=== PATIENT | female | born 1975 | race Caucasian/White ===

== ENCOUNTER 2022-09-20 10:10 | Outpatient (RCR) | payer MEDICARE, MEDICAID, SELFPAY ==
--- NOTE | 2022-09-20 11:34 | PCPTNOTE ---
Patient seen secondary to a concern about other physical therapy clinic. Patient currently being seen at other clinic. Physical therapist did subjective history of patient, looked at home exercise program, and called patient's doctor's office to have a clarification on guidelines. Patient appears to be getting proper physical therapy based on those facts. Patient lives 15 minutes from current clinic she is going to and 50 minutes from this clinic. This clinic does not have dry needling which was suggested in the order and did have a therapist that had extra experience with thoracic outlet syndrome, but she no longer works here so I would recommend going back to her current clinic. No charge for session as I do not believe she can be seen by two clinics at the same time.
== END 2022-09-20 13:28 | disposition home or self-care (01) ==
LOC: ANHPT 10:10
DX: G54.0 Brachial plexus disorders (principal)
CPT/HCPCS: 99199

== ENCOUNTER 2023-05-02 10:11 | Outpatient (CLI) | payer MEDICARE, MEDICAID, SELFPAY ==
--- NOTE | 2023-05-02 10:00 | ECG_ITS ---
Measurements Intervals [place] Rate: 67 P: 64 MO: 122 QRS: 74 QRSD: 93 T: 67 QT: 378 QTc: 399 Interpretive Statements SINUS RHYTHM POSSIBLE LEFT ATRIAL ENLARGEMENT [-0.1mV P WAVE IN V1/V2] POSSIBLE LEFT VENTRICULAR HYPERTROPHY [VOLTAGE CRITERIA PLUS LAE OR QRS WIDENING] ABNORMAL ECG NO PREVIOUS ECG AVAILABLE FOR COMPARISON Electronically Signed On 05-02-2023 12:07:44 CDT by Hans Mason M.D.
[2023-05-02 12:20] LABS: Hematocrit 42.3 % (37.0-47.0); Hemoglobin 13.8 g/dL (12.0-15.0); Mean Corpuscular HGB Conc 32.6 g/dl (32-36); Mean Corpuscular Hemoglobin 30.2 pg (26-34); Mean Corpuscular Volume 92.6 fl (80-100); Mean Platelet Volume 9.2 fl (7.4-10.4); Platelet Count Result 220 k/mm3 (150-375); Red Blood Count 4.57 M/mm3 (4.2-5.4); Red Cell Distribution Width 19.2 % (11.5-14.5); White Blood Count 7.8 K/mm3 (4.5-10.0)
[2023-05-02 12:29] LABS: INR 0.9; Prothrombin Time 12.6 Seconds (11.1-14.7)
[2023-05-02 12:31] LABS: Partial Thromboplastin Time 28.4 SECONDS (22.3-36.8)
[2023-05-02 12:47] LABS: Appearance Urine Clear (Clear); Bilirubin Urine Negative (Negative); Blood Urine Negative (Negative); Color Urine Yellow (Yellow); Glucose Urine UA Negative (Negative); Ketones Urine Negative (Negative); Leukocyte Esterase Ur Negative LEU/UL (Negative); Nitrate Urine Negative (Negative); Protein Urine Negative (Negative); Specific Grav Ur 1.012 (1.001-1.035); Urobilinogen Urine 0.2 mg/dL (<2.0)
[2023-05-02 13:01] LABS: Add Urine Microscopic? NO
[2023-05-02 13:59] LABS: Anion Gap 2 mmol/L (8-16); Blood Urea Nitrogen 14 mg/dL (7-17); Calcium 9.1 mg/dL (8.4-10.2); Carbon Dioxide 36 mmol/L (22-30); Chloride 98 mmol/L (98-107); Estimated Glomerular Filt Rate > 60; Glucose 88 mg/dL (65-110); Sodium 136 mmol/L (137-145)
== END 2023-05-02 10:12 | disposition home or self-care (01) ==
PROVIDERS: PCP Physician Assistant Medical; Visit Provider Neurological Surgery
DX: M54.2 Cervicalgia (principal); G89.29 Other chronic pain; Z01.818 Encounter for other preprocedural examination; R94.31 Abnormal electrocardiogram [ECG] [EKG]
CPT/HCPCS: 36415; 80048; 81003; 85027; 85610; 85730; 86850; 86900; 86901; 93005

== ENCOUNTER 2023-05-04 12:30 | Inpatient (IN) | payer MEDICARE, MEDICAID, SELFPAY ==
[2023-05-01 08:35] VITALS: BMI 20.7
--- NOTE | 2023-05-01 08:54 | PC.NURSE ---
Report to the Outpatient Waiting Room, entrance under the green pavilion located off [facility], at time 6:00 on date 05/04/23. Planned Procedure Time: 8:00. Time changes happen often and if your time is changed the preop area will call you the afternoon before. - You and your visitor will be asked to self-screen and do not enter if you have any COVID symptoms. - A mask is optional within the hospital at this time. Patients may have clear liquids (water, carbonated beverages, clear teas, apple juice) until 3 hours prior to surgery (5:00) with a maximum of 20 ounces. - No food from midnight until time of surgery Take the following medications with a SIP of water the morning of surgery: SUBOXONE, DIAZEPAM, GABAPENTIN, STEROID, SERTRALINE DO NOT STOP ANY OF YOUR OTHER PRESCRIPTION MEDICATIONS PRIOR TO SURGERY EXCEPT THE FOLLOWING Medications to discontinue per physician: MELOXICAM AND VITAMIN Date to take last dose: HAS ALREADY STOPPED Please no make-up, nail south korean, hairspray, perfume, deodorant, or body powder the day of surgery. No jewelry (including any body piercings) or valuables the day of surgery, leave them at home. Please take a shower or bath the night before, or the morning of, surgery with an antibacterial soap. Wear comfortable, loose fitting clothing. - Jewelry must be removed prior to entering the operating room. Rings and piercings that are not removed may be cut off. - The hospital will not accept responsibility for valuables. - Please leave all valuables, including medications, at home the day of surgery. If you are going home after surgery, a licensed dumpster driver must drive you home. - NO public transportation without another adult if you receive anesthesia. - We recommend that an adult stay with you for 24 hours following discharge. - We also recommend that you do not drive, make important decision, drink alcoholic beverages, or take any drugs that were not prescribed by your health care provider for at least 24 hours after your discharge time. Follow any additional instructions given to you from your surgeon. If you or anyone in your household have experienced Covid symptoms in the past week, please notify your surgeon or the nurse liaison at the phone number below for possible testing. Telephone instructions given to PT - H[employer]DE [employer] and asked if any additional questions and then verbalized understanding. Patient advised to call surgeon office or pre surgery nurse liaison [phone] if any additional questions.
[2023-05-04] VITALS (14 sets, daily range): BP systolic 102–141; BP diastolic 51–78; PULSE 70–99; RESP 14–18; TEMP 36.1–37.2; O2SAT 91–100
--- NOTE | ~2023-05-04 | XR_ITS ---
XR fluoroscopy no charge DATE: 05/04/2023 10:27 INDICATION: C3-T1 laminectomy, lateral mass fusion TECHNIQUE: 3 spot C-arm lateral views of the cervical spine 10.5 seconds total exposure time 0.0086 mGym2 total dose area product COMPARISON: None FINDINGS: Status post anterior and interbody spinal surgical fusion by means of anterior plate and sc rews and interbody device at C3-C5. Status post anterior surgical spinal fusion by means of plate and screws at C7-T1. Status post posterior surgical fusion at C3-T2 IMPRESSION: Status post anterior surgical fusion at C3-C5 and C7-T1 Status post posterior surgical fusion at C3-T2 Reviewed, dictated and finalized at [facility]. Reviewed, dictated and finalized at location []
[2023-05-04] MEDS: LACTATED RINGERS 1,000 ML 30 ML IV CONT ×2 (07:10→10:55)
--- NOTE | 2023-05-04 07:39 | WPDANESEPPF ---
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 Patient Data Age: 47 Gender: F Height: 1.68 m Weight: 56.5 kg Last Vital Signs Temp 37.2 C 05/04/23 07:13 Pulse 99 05/04/23 07:13 Resp 16 05/04/23 07:13 BP 141/78 H 05/04/23 07:13 Pulse Ox 95 05/04/23 07:13 O2 Del Method Room Air 05/04/23 07:13 Allergies Allergy/AdvReac Type Severity Reaction Status Date / Time baclofen Allergy Severe emesis, Verified 05/04/23 06:45 coma X 4 days diphenhydramine Allergy Other Verified 05/04/23 06:45 [From Benadryl] oxycodone AdvReac Severe Nausea and Verified 05/04/23 06:45 Vomiting duloxetine [From Cymbalta] AdvReac Palpitation Verified 05/04/23 06:45 s methocarbamol [From Robaxin] AdvReac Gastrointestinal Verified 05/04/23 06:45 Upset milnacipran [From Savella] AdvReac Vomiting Verified 05/04/23 06:45 pregabalin [From Lyrica] AdvReac Other Verified 05/04/23 06:45 propranolol AdvReac Other Verified 05/04/23 06:45 tizanidine AdvReac Drowsy Verified 05/04/23 06:45 Home Medications Medication Instructions Recorded Confirmed Type buprenorphine 12 mg-naloxone 3 mg 1 film buccal Q24H Takes in the am 10/11/22 05/04/23 History sublingual film (Suboxone) buprenorphine 2 mg-naloxone 0.5 mg 1 film buccal DAILY at night 10/11/22 05/04/23 History sublingual film (Suboxone) buprenorphine 4 mg-naloxone 1 mg 1 film buccal Q24H At noon 10/11/22 05/04/23 History sublingual film (Suboxone) sertraline 100 mg tablet 100 mg PO DAILY #90 tabs 12/05/22 05/04/23 Rx oxybutynin chloride 5 mg 5 mg PO DAILY #90 tabs 12/26/22 05/04/23 Rx tablet,extended release 24 hr sennosides 8.6 mg-docusate sodium 1 tab-cap PO QHS #30 tabs 01/08/23 05/04/23 Rx 50 mg tablet (Senexon-S) meloxicam 15 mg tablet 15 mg PO DAILY 01/25/23 05/04/23 History montelukast 10 mg tablet 10 mg PO DAILY #90 tabs 01/25/23 05/04/23 Rx fluticasone propionate 50 2 spray intranasal BID #48 grams 04/02/23 05/04/23 Rx mcg/actuation nasal spray,suspension diazepam 5 mg tablet See Rx Instructions PO TID muscle 04/06/23 05/04/23 Rx spasm & anxiety 28 days #84 tabs gabapentin 800 mg tablet 800 mg PO TID #270 tabs 04/11/23 05/04/23 Rx gabapentin 100 mg capsule 200 mg PO TID #180 caps 04/16/23 05/04/23 Rx trazodone 50 mg tablet See Rx Instructions PO QHS PRN 04/16/23 05/04/23 Rx insomnia #90 tabs methylprednisolone 4 mg tablets in See Rx Instructions PO PER PKG DIR 04/30/23 05/04/23 Rx a dose pack (Medrol (Pepito)) #21 ea calcium carbonate 500 mg calcium 500 mg PO DAILY 05/01/23 05/04/23 History (1,250 mg) chewable tablet (Calcium 500) cholecalciferol (vitamin D3) 125 125 mcg PO DAILY 05/01/23 05/04/23 History mcg (5,000 unit) tablet (Vitamin D3) diazepam 10 mg tablet 10 mg PO Q6H PRN Anxiety 05/01/23 05/04/23 History zhevgeektk-LR-XF-acetaminophen 2 cap PO Q4-6H PRN Allergy Symptoms 05/01/23 05/04/23 History 6.25 mg-5 mg-10 mg-325 mg capsule (Kati-[place] Plus Nsxxs-Mglstmx-Caf) Patient hx anesthesia problems: none Family hx anesthesia problems: none Results Review: All pre-operative results and documents have been reviewed as part of the pre-operative evaluation. [facility] Past Medical History Medical History Anxiety Chronic neck pain DVT of upper extremity (deep vein thrombosis) Gallbladder attack IBS (irritable bowel syndrome) Pneumothorax large right with tension s/p chest tube Thoracic outlet syndrome Surgical History Surgical History Hx of spinal surgery multiple on the neck Social History Social History (Reviewed 06
--- NOTE | 2023-05-04 07:50 | WPDHPUPDATE1 ---
History and Physical Update Update Date/Time: 05/04/23 07:50 History and Physical has been reviewed, including an updated exam of the patient. There are NO changes in the patient's condition. Risks, benefits, and alternatives have been discussed and questions answered. Patient agrees to proceed with procedure.
[2023-05-04] MEDS: ceFAZolin 2 GM/D5W 50 ML 2 GM/50 ML BAG IVPB (07:59)
[2023-05-04] MEDS: LIDO 1%/EPINEPHRINE 1:100,000 50 ML VIAL 10 ML INFILTRATE (09:04)
--- NOTE | 2023-05-04 10:32 | W.PM.PROC2 ---
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 Her head was placed in a Dunlap heat treater head. She was then turned into the prone position on gel rolls her head was attached to the bed frame using Dunlap augustin in a slightly flexed and shoulder position. There of operation on the back of her neck was examined, marked for incision, prepped and draped in routine sterile fashion. This area was injected with 0.5% lidocaine with [id number] epinephrine. Intravenous antibiotics given prior to incision. Incision was made with a 10 blade scalpel down to the cervical fascia. A subperiosteal dissection of the muscle soft tissue away from spinous process and lamina at C3-T1 was performed with a subperiosteal elevator and Bovie cautery. A verifying x-rays obtained to verify the level of operation. The C3-C7 laminectomy was performed by cutting a trench in the lamina just lateral to the spinous process bilateral using a Midas Brandon drill. The interspinous ligament above and below was cut with a Leksell rongeur. The C3 through 7 laminae a could then be removed in 1 piece. These were stripped free of soft tissue and morselized for later use is posterolateral autograft. Pedicle screws were performed at L1 by observing and palpating the pedicle awl hole was made and superior articular process above the pedicle using a Midas Brandon drill. The pedicle was then cannulated with a pedicle probe, checked for continuity with the ball probe, tapped with a 3.5 mm tap and a 24 mm x 4 mm screws placed into each pedicle on each side. Lateral mass screws were placed at C3-6 by creating a hole at the mid point facet using a Midas Brandon drill. The drill set to 12 mm then used to create a hole 20? cephalad 20? lateral each of these and a lateral masses. These were tapped with a 3.5 mm screw. A 4 x 12 mm screw was then placed in the each lateral mass on each side. Rongeur placed in the screw heads on either side and secured in position using the caps for that purpose. These were definitively tightened with a torque and anti torque device. A verifying x-rays obtained to verify good position of the instrumentation which was confirmed. The lateral masses were decorticated using a Midas Brandon drill. Mixture of local autograft and I factor was then packed against these decorticated surfaces and into the decorticated facet joints. Copious irrigation had previously been performed with bacitracin irrigation. A medium Hemovac drain was left in the subfascial position buried up to the inferior right of the incision. The wound was then closed in layered fashion with 2-0 Vicryl interrupted sutures in the lumbodorsal fascia and Aileen's layer. 3-0 Vicryl buried interrupted sutures were placed in the dermis and the skin was closed with a running 4-0 Monocryl subcuticular stitch and dressed with Dermabond and a Telfa and Tegaderm dressing. The patient was allowed to wake up in the operating room was taken to the recovery room in stable condition. There were no immediate complications of this operation. All counts were reported correct in case. Blood loss was 200 cc. The patient was neurologically at her baseline postoperatively. Estimated Blood Loss 200 IV Fluids 1,500 Drains Yes Complications None Condition Stable Disposition PACU [facility] Billing Surgery - Charge Forward: Surgery Billing
--- NOTE | 2023-05-04 12:47 | ADMGEN ---
This patient, Yin Chacon, was admitted to Medical Room 340-01 2 1240. Patient/family oriented to hospital policies and general routines including ID bracelet, bed and alarms, visiting hours, pain management, procedures, bathroom and other care routines, personal items, smoking policy, room service/diet, and visiting hours. Information on how to activate the Rapid Response Team has been discussed. Patient/Family are encouraged to report perceived risks to care and to ask questions if they do not understand what they are told or what they should do.
[2023-05-04] MEDS: GABAPENTIN 400 MG CAPSULE 800 MG PO (14:36)
[2023-05-04] MEDS: oxyBUTYnin CHLORIDE XL 5 MG TAB.ER.24 PO (14:37)
[2023-05-04] MEDS: GABAPENTIN 100 MG CAPSULE 200 MG PO (14:37)
[2023-05-04] MEDS: HYDROmorphone HCL INJ (*CRX) 1 MG/ML SYR 0.5 MG IV PUSH ×2 (15:58→20:45)
--- NOTE | 2023-05-04 16:37 | PCPTNOTE ---
On 05/04/23, the student, [Lillian Toro], provided care and completed [facility] documentation on this patient. I have reviewed the student's documentation and agree with the findings.
[2023-05-04] MEDS: FLUTICASONE PROPIONATE 0.05% NA SPR 16 GM BTL (*BKC) 2 SPRAY NASAL (17:01)
[2023-05-04] MEDS: ceFAZolin 1 GM/NS 50 ML 1 GM/50 ML BAG IVPB (17:46)
[2023-05-04] MEDS: SENNA/DOCUSATE SODIUM TABLET 1 TAB PO (20:46)
[2023-05-05] MEDS: ceFAZolin 1 GM/NS 50 ML 1 GM/50 ML BAG IVPB ×2 (00:46→07:39)
[2023-05-05] MEDS: HYDROcodone/acetaminophen (*CRX) 10-325 MG TABLET 1 TAB PO ×4 (01:46→21:29)
[2023-05-05 01:52] VITALS: BP 127/71; PULSE 88; RESP 18; TEMP 37.1; O2SAT 95
[2023-05-05 04:12] VITALS: BP 152/82; PULSE 92; RESP 16; TEMP 37.2; O2SAT 95
[2023-05-05 07:30] VITALS: BP 142/83; PULSE 84; RESP 16; TEMP 37.1; O2SAT 95
[2023-05-05] MEDS: HYDROmorphone HCL INJ (*CRX) 1 MG/ML SYR 0.5 MG IV PUSH ×3 (07:56→18:53)
[2023-05-05] MEDS: FLUTICASONE PROPIONATE 0.05% NA SPR 16 GM BTL (*BKC) 2 SPRAY NASAL ×2 (08:35→16:59)
[2023-05-05] MEDS: GABAPENTIN 400 MG CAPSULE 800 MG PO ×3 (08:35→16:59)
[2023-05-05] MEDS: CHOLECALCIFEROL 1,000 UNITS TABLET 5000 UNITS PO (08:36)
[2023-05-05] MEDS: GABAPENTIN 100 MG CAPSULE 200 MG PO ×3 (08:36→17:00)
[2023-05-05] MEDS: MONTELUKAST SODIUM 10 MG TABLET PO (08:36)
[2023-05-05] MEDS: SERTRALINE HCL 50 MG TABLET 100 MG PO (08:36)
[2023-05-05] MEDS: oxyBUTYnin CHLORIDE XL 5 MG TAB.ER.24 PO (08:36)
--- NOTE | 2023-05-05 10:26 | PC.NURSE ---
Spoke with Dr Hough this am to clarify use of collar. Hard collar is to be worn at all time with the exception of bathing or eating.
--- NOTE | 2023-05-05 11:00 | WPDNEUROSGPN ---
Progress Note: A&P Assessment and Plan (1) Cervical stenosis of spinal canal: Code(s): M48.02 - Spinal stenosis, cervical region Status: Acute Plan 47 year old female POD1 from posterior cerivcal decompression and fusion Pain control improving Plan to d/c hemovac drain this am Try to minimize IV narcotic use. Anticipate stable for d.c to home either later today vs early 05/06 pending pain control Appreciate hospitalist assistance with pain managment At dischage patinet will take mm relaxants and home suboxone for pain control per Dr. Hough Time Spent With Patient Time with patient: 15 - 25 minutes Subjective Date/time seen: 05/05/23 11:00 Interval history: Patient with neck pain but conroled with po and iv medications along with mm relaxants Not getting home suboxone Mobilizing well Drain output 60 cc overnight Exam Narrative: AWake, alert, oriented x3 Speech CF SAAD EOMI Face= TML MAEW with good strength Able to elevate arms above head without icident Dressing CDI In cervical collar Objective Data Vital Signs Vital Signs: Vital Signs - 24 hr 05/04/23 11:10 05/04/23 11:25 05/04/23 11:40 Temperature Pulse Rate 88 82 72 Respiratory Rate 14 14 14 Blood Pressure 113/64 120/67 128/68 Pulse Oximetry 100 96 93 Oxygen Delivery Simple Face Mask Room Air Room Air Oxygen Flow Rate 6 05/04/23 11:55 05/04/23 12:10 05/04/23 12:25 Temperature Pulse Rate 70 75 72 Respiratory Rate 14 14 16 Blood Pressure 120/66 121/64 125/62 Pulse Oximetry 93 94 93 Oxygen Delivery Room Air Room Air Room Air Oxygen Flow Rate 05/04/23 12:40 05/04/23 12:55 05/04/23 13:25 Temperature 96.9 F L 97.1 F L 97.2 F L Pulse Rate 75 73 80 Respiratory Rate 16 18 18 Blood Pressure 116/60 110/58 L 112/59 L Pulse Oximetry 91 93 95 Oxygen Delivery Oxygen Flow Rate 05/04/23 14:25 05/04/23 15:38 05/04/23 15:46 Temperature 97.5 F L 97.8 F Pulse Rate 84 89 Respiratory Rate 18 18 Blood Pressure 102/53 L 108/57 L Pulse Oximetry 93 93 Oxygen Delivery Room Air Oxygen Flow Rate 05/04/23 20:25 05/04/23 21:00 05/05/23 01:52 Temperature 98.2 F 98.7 F Pulse Rate 80 88 Respiratory Rate 18 18 Blood Pressure 116/62 127/71 Pulse Oximetry 94 95 Oxygen Delivery Room Air Oxygen Flow Rate 05/05/23 04:12 05/05/23 07:30 Temperature 99 F 98.8 F Pulse Rate 92 84 Respiratory Rate 16 16 Blood Pressure 152/82 H 142/83 H Pulse Oximetry 95 95 Oxygen Delivery Oxygen Flow Rate Intake/Output Intake/Output: Intake & Output 05/02/23 05/03/23 05/04/23 05/05/23 23:59 23:59 23:59 23:59 Intake Total 2620 622 Output Total 225 1410 Balance 9438 -824 Meds/Results Medications: Active Medications Generic Name Dose Route Start Last Admin Trade Name Freq PRN Reason Stop Dose Admin Hydrocodone Bitart/Acetaminophen 1 tab 05/04/23 12:30 Hydrocodone/Acetaminophen (*Crx) 5-325 Mg Tablet PO Q4H PRN Mild Pain (1-3) Hydrocodone Bitart/Acetaminophen 1 tab 05/04/23 12:30 05/05/23 01:46 Hydrocodone/Acetaminophen (*Crx) 10-325 Mg Tablet PO 1 tab Q4H PRN Administration Moderate Pain (4-6) Al Hydrox/Mg Hydrox/Simethicone 20 ml 05/04/23 12:30 Mag Hydrox/Al Hydrox/Simeth 30 Ml Udc PO Q4H PRN Indigestion/Heartburn Bisacodyl 10 mg 05/04/23 12:30 Bisacodyl 10 Mg Suppository RECTAL DAILY PRN Constipation Calcium Carbonate 500 mg 05/05/23 09:00 Calcium Carbonate (Tums) 500 Mg (200 Mg Elemental) PO DAILY ИВАН Diazepam 5 mg 05/04/23 17:00 Diazepam (*Crx) 5 Mg Tablet PO TID PRN MUSCLE SPASM AND Anxiety Fluticasone Propionate 2 spray 05/04/23 17:00 05/05/23 08:35 Fluticasone Propionate 0.05% Na Spr 16 Gm Btl (*Bkc) NASAL 2 spray BID ИВАН Administration Gabapentin 200 mg 05/04/23 13:00 05/05/23 08:36 Gabapentin 100 Mg Capsule PO 200 mg TID ИВАН Administration Gabapentin 800 m
[2023-05-05 11:30] VITALS: BP 123/76; PULSE 104; RESP 16; TEMP 36.7; O2SAT 97
--- NOTE | 2023-05-05 12:53 | PM.IMPN ---
Progress Note: A&P Assessment and Plan (1) Hx of spinal surgery: Code(s): Z98.890 - Other specified postprocedural states Status: Acute Assessment and Plan: Patient with history of severe cervical stenosis underwent procedure on 05/04/2023 of C3-7 laminectomy and C3-T1 lateral mass instrumented fusion. Goal to have good pain control Analgesics as needed. Hemovac drain removed on 05/05/2023 Laxatives p.r.n. to prevent constipation. (2) Cervical stenosis of spinal canal: Code(s): M48.02 - Spinal stenosis, cervical region Status: Acute Assessment and Plan: See above Plan Resume home medications as appropriate. Appreciate the consultation will follow along with you! Subjective Date/time seen: 05/05/23 12:53 Interval history: Patient doing well and resting in bed. She is still in a significant amount of pain. She has been up and out of bed sitting in the chair. She is rather uncomfortable in her hard neck brace. Neurosurgery running on patient and patient will likely be discharged tomorrow. Exam Narrative: GENERAL: Comfortable, no acute distress HENMT: moist mucous membranes, hard collar neck brace in place, Hemovac present EYES: EOM intact b/l NECK: no lymphadenopathy RESPIRATORY: clear to auscultation CARDIO: RRR GI: soft, nontender, bowel sounds present SKIN: no rashes EXTREMITIES: no edema, redness or tenderness Objective Data Vital Signs Vital Signs: Vital Signs - 24 hr 05/04/23 12:55 05/04/23 13:25 05/04/23 14:25 Temperature 97.1 F L 97.2 F L 97.5 F L Pulse Rate 73 80 84 Respiratory Rate 18 18 18 Blood Pressure 110/58 L 112/59 L 102/53 L Pulse Oximetry 93 95 93 Oxygen Delivery 05/04/23 15:38 05/04/23 15:46 05/04/23 20:25 Temperature 97.8 F 98.2 F Pulse Rate 89 80 Respiratory Rate 18 18 Blood Pressure 108/57 L 116/62 Pulse Oximetry 93 94 Oxygen Delivery Room Air 05/04/23 21:00 05/05/23 01:52 05/05/23 04:12 Temperature 98.7 F 99 F Pulse Rate 88 92 Respiratory Rate 18 16 Blood Pressure 127/71 152/82 H Pulse Oximetry 95 95 Oxygen Delivery Room Air 05/05/23 07:30 Temperature 98.8 F Pulse Rate 84 Respiratory Rate 16 Blood Pressure 142/83 H Pulse Oximetry 95 Oxygen Delivery Intake/Output Intake/Output: Intake & Output 05/02/23 05/03/23 05/04/23 05/05/23 23:59 23:59 23:59 23:59 Intake Total 2620 622 Output Total 225 1410 Balance 1306 -966 Meds/Results Medications: Active Medications Generic Name Dose Route Start Last Admin Trade Name Freq PRN Reason Stop Dose Admin Hydrocodone Bitart/Acetaminophen 1 tab 05/04/23 12:30 Hydrocodone/Acetaminophen (*Crx) 5-325 Mg Tablet PO Q4H PRN Mild Pain (1-3) Hydrocodone Bitart/Acetaminophen 1 tab 05/04/23 12:30 05/05/23 11:04 Hydrocodone/Acetaminophen (*Crx) 10-325 Mg Tablet PO 1 tab Q4H PRN Administration Moderate Pain (4-6) Al Hydrox/Mg Hydrox/Simethicone 20 ml 05/04/23 12:30 Mag Hydrox/Al Hydrox/Simeth 30 Ml Udc PO Q4H PRN Indigestion/Heartburn Bisacodyl 10 mg 05/04/23 12:30 Bisacodyl 10 Mg Suppository RECTAL DAILY PRN Constipation Calcium Carbonate 500 mg 05/05/23 09:00 Calcium Carbonate (Tums) 500 Mg (200 Mg Elemental) PO DAILY ИВАН Diazepam 5 mg 05/04/23 17:00 Diazepam (*Crx) 5 Mg Tablet PO TID PRN MUSCLE SPASM AND Anxiety Fluticasone Propionate 2 spray 05/04/23 17:00 05/05/23 08:35 Fluticasone Propionate 0.05% Na Spr 16 Gm Btl (*Bkc) NASAL 2 spray BID ИВАН Administration Gabapentin 200 mg 05/04/23 13:00 05/05/23 08:36 Gabapentin 100 Mg Capsule PO 200 mg TID ИВАН Administration Gabapentin 800 mg 05/04/23 13:00 05/05/23 08:35 Gabapentin 400 Mg Capsule PO 800 mg TID ИВАН Administration Hydromorphone HCl 0.5 mg 05/04/23 12:30 05/05/23 07:56 Hydromorphone Hcl Inj (*Crx) 1 Mg/Ml Syr IV PUSH 0.5 mg Q2H ID
[2023-05-05] MEDS: diazePAM (*CRX) 5 MG TABLET PO ×2 (12:59→17:00)
[2023-05-05 21:13] VITALS: BP 119/61; PULSE 81; RESP 18; TEMP 36.8; O2SAT 98
[2023-05-05] MEDS: SENNA/DOCUSATE SODIUM TABLET 1 TAB PO (21:29)
[2023-05-06] MEDS: diazePAM (*CRX) 5 MG TABLET PO ×2 (01:14→08:04)
[2023-05-06] MEDS: HYDROcodone/acetaminophen (*CRX) 10-325 MG TABLET 1 TAB PO (03:47)
[2023-05-06 03:54] VITALS: PULSE 88; RESP 18; TEMP 36.6; O2SAT 95
[2023-05-06 03:55] VITALS: BP 144/81; PULSE 88; RESP 18; TEMP 36.6; O2SAT 95
[2023-05-06] MEDS: FLUTICASONE PROPIONATE 0.05% NA SPR 16 GM BTL (*BKC) 2 SPRAY NASAL (08:03)
[2023-05-06] MEDS: GABAPENTIN 100 MG CAPSULE 200 MG PO ×2 (08:03→12:23)
[2023-05-06] MEDS: MONTELUKAST SODIUM 10 MG TABLET PO (08:03)
[2023-05-06] MEDS: GABAPENTIN 400 MG CAPSULE 800 MG PO ×2 (08:03→12:23)
[2023-05-06] MEDS: CHOLECALCIFEROL 1,000 UNITS TABLET 5000 UNITS PO (08:03)
[2023-05-06] MEDS: oxyBUTYnin CHLORIDE XL 5 MG TAB.ER.24 PO (08:04)
[2023-05-06] MEDS: SERTRALINE HCL 50 MG TABLET 100 MG PO (08:04)
[2023-05-06] MEDS: HYDROcodone/acetaminophen (*CRX) 5-325 MG TABLET 1 TAB PO ×2 (08:08→12:22)
--- NOTE | 2023-05-06 11:09 | PM.IMPN ---
Progress Note: A&P Assessment and Plan (1) Hx of spinal surgery: Code(s): Z98.890 - Other specified postprocedural states Status: Acute Assessment and Plan: Patient with history of severe cervical stenosis underwent procedure on 05/04/2023 of C3-7 laminectomy and C3-T1 lateral mass instrumented fusion. Goal to have good pain control Analgesics as needed. Hemovac drain removed on 05/05/2023 Laxatives p.r.n. to prevent constipation. (2) Cervical stenosis of spinal canal: Code(s): M48.02 - Spinal stenosis, cervical region Status: Acute Assessment and Plan: See above Plan Resume home medications as appropriate. Appreciate the consultation will follow along with you! Subjective Date/time seen: 05/06/23 11:09 Interval history: Patient doing well this morning and pain is well controlled. Patient is medically stable for discharge from hospitalist stand point. Review of Systems Review of Systems: All systems reviewed & are unremarkable except as noted in HPI and below Exam Narrative: GENERAL: Comfortable, no acute distress HENMT: moist mucous membranes, hard collar neck brace in place EYES: EOM intact b/l NECK: no lymphadenopathy RESPIRATORY: clear to auscultation CARDIO: RRR GI: soft, nontender, bowel sounds present SKIN: no rashes EXTREMITIES: no edema, redness or tenderness Objective Data Vital Signs Vital Signs: Vital Signs - 24 hr 05/05/23 11:30 05/05/23 21:13 05/05/23 21:00 Temperature 98.0 F 98.2 F Pulse Rate 104 H 81 Respiratory Rate 16 18 Blood Pressure 123/76 119/61 Pulse Oximetry 97 98 Oxygen Delivery Room Air 05/06/23 03:54 05/06/23 03:55 05/06/23 08:04 Temperature 97.8 F 97.8 F Pulse Rate 88 88 Respiratory Rate 18 18 Blood Pressure 144/81 H Pulse Oximetry 95 95 Oxygen Delivery Room Air Intake/Output Intake/Output: Intake & Output 05/03/23 05/04/23 05/05/23 05/06/23 23:59 23:59 23:59 23:59 Intake Total 2620 1602 740 Output Total 225 1480 Balance 2395 122 740 Meds/Results Medications: Active Medications Generic Name Dose Route Start Last Admin Trade Name Freq PRN Reason Stop Dose Admin Hydrocodone Bitart/Acetaminophen 1 tab 05/04/23 12:30 05/06/23 08:08 Hydrocodone/Acetaminophen (*Crx) 5-325 Mg Tablet PO 1 tab Q4H PRN Administration Mild Pain (1-3) Hydrocodone Bitart/Acetaminophen 1 tab 05/04/23 12:30 05/06/23 03:47 Hydrocodone/Acetaminophen (*Crx) 10-325 Mg Tablet PO 1 tab Q4H PRN Administration Moderate Pain (4-6) Al Hydrox/Mg Hydrox/Simethicone 20 ml 05/04/23 12:30 Mag Hydrox/Al Hydrox/Simeth 30 Ml Udc PO Q4H PRN Indigestion/Heartburn Bisacodyl 10 mg 05/04/23 12:30 Bisacodyl 10 Mg Suppository RECTAL DAILY PRN Constipation Diazepam 5 mg 05/04/23 17:00 05/06/23 08:04 Diazepam (*Crx) 5 Mg Tablet PO 5 mg TID PRN Administration MUSCLE SPASM AND Anxiety Fluticasone Propionate 2 spray 05/04/23 17:00 05/06/23 08:03 Fluticasone Propionate 0.05% Na Spr 16 Gm Btl (*Bkc) NASAL 2 spray BID ИВАН Administration Gabapentin 200 mg 05/04/23 13:00 05/06/23 08:03 Gabapentin 100 Mg Capsule PO 200 mg TID ИВАН Administration Gabapentin 800 mg 05/04/23 13:00 05/06/23 08:03 Gabapentin 400 Mg Capsule PO 800 mg TID ИВАН Administration Hydromorphone HCl 0.5 mg 05/04/23 12:30 05/05/23 18:53 Hydromorphone Hcl Inj (*Crx) 1 Mg/Ml Syr IV PUSH 0.5 mg Q2H PRN Administration Pain Rated 7-10 Montelukast Sodium 10 mg 05/05/23 09:00 05/06/23 08:03 Montelukast Sodium 10 Mg Tablet PO 10 mg DAILY ИВАН Administration Ondansetron HCl 4 mg 05/04/23 12:30 Ondansetron Inj 4 Mg/2 Ml Vial IV PUSH Q8H PRN Nausea And Vomiting Oxybutynin Chloride 5 mg 05/04/23 14:00 05/06/23 08:04 Oxybutynin Chloride Xl 5 Mg Tab.Er.24 PO 5 mg DAILY ИВАН Administration Senna/Docusa
--- NOTE | 2023-05-06 11:12 | PC.NURSE ---
Engineering Scientist called Dr. Bradley for patient as patient is waiting for discharge. No answer. Engineering Scientist then called exchange and that number is no longer in service.
--- NOTE | 2023-06-25 12:39 | PM.DS ---
DS: Admitting Diagnosis Discharge Date 05/06/23 Admitting Diagnosis Cervical stenosis with myelopathy DS: Discharge Diagnosis Discharge Diagnosis Plan cervical stenosis with myelopathy. DS: Summary Hospital Course Hospital Course: Yin was taken to the operating room on 05/04/2023 with the aforementioned C3-T1 laminectomy and lateral mass instrumented fusion was performed without complication. She went to the floor postoperatively. Physical and occupational therapy were involved in her care. By postop day 2 she was eating, ambulating, emptying her bladder and her pain was under control with by mouth pain medicine. Her wound remained clean, dry and intact. She was afebrile with stable vital signs. She was therefore allowed to be discharged to home. She was improved from standpoint of her myelopathy and continued to do so at discharge. Time Spent with Patient Time attestation: Total time spent providing and/or coordinating discharge services: Discharge Plan Discharge Attending physician on discharge: Jose Hough Consulting providers: German Portillo; Madison Chavez; Bethanie Mishra Discharging Clinician: Isa Bradley Anticipated Discharge Date/Time: 05/06/23 12:31 Patient Disposition: Home, Self-Care Activity: may shower and other - see discharge instructions Diet: regular Wound Care Instructions: remove dressing to shower and incision open to air Patient Instructions: Antibiotic Form, How to Stop Smoking (GEN) Stand Alone Forms: General Discharge Information Follow-up/Referrals: Jose Hough MD [Physician] - (Call office to schedule follow up) Discharge Medications: Continued buprenorphine-naloxone [Suboxone] 12-3 mg film 1 film buccal Q24H buprenorphine-naloxone [Suboxone] 4-1 mg film 1 film buccal Q24H Rx Instructions: place 1 strip/tab under (each) side of tongue buprenorphine-naloxone [Suboxone] 2-0.5 mg film 1 film buccal DAILY Rx Instructions: place 1 strip/tab under (each) side of tongue diazepam 5 mg tablet See Rx Instructions PO TID 28 Days Qty: 84 2RF Hold Instructions: on higher dose due to recent surgery Rx Instructions: 1 tab TID PRN MUST LAST 28 days calcium carbonate [Calcium 500] 500 mg calcium (1,250 mg) Tablet,Chewable 500 mg PO DAILY cholecalciferol (vitamin D3) [Vitamin D3] 125 mcg (5,000 unit) Tablet 125 mcg PO DAILY Kati-Chandler Plus Cyv-Adjo-Fhm 6.25-5-10-325 mg Capsule 2 cap PO Q4-6H PRN (Reason: Allergy Symptoms) sertraline 100 mg tablet 100 mg PO DAILY Qty: 90 0RF oxybutynin chloride 5 mg tablet extended release 24hr 5 mg PO DAILY Qty: 90 0RF sennosides-docusate sodium [Senexon-S] 8.6-50 mg tablet 1 tab-cap PO QHS Qty: 30 5RF No Action diazepam 10 mg tablet 10 mg PO Q8H PRN (Reason: Anxiety) Qty: 90 0RF varenicline [Chantix Starting Month Box] 0.5 mg (11)- 1 mg (42) tablets,dose pack See Rx Instructions PO PER PKG DIR Qty: 53 0RF Rx Instructions: PO PER PKG DIR montelukast 10 mg tablet 10 mg PO DAILY Qty: 90 1RF fluticasone propionate 50 mcg/actuation spray,suspension 2 spray intranasal BID Qty: 48 0RF Rx Instructions: administer into each nostril gabapentin 100 mg capsule 200 mg PO TID Qty: 180 0RF Rx Instructions: take 2 caps 3x/day with 800mg cap. gabapentin 800 mg tablet 800 mg PO TID Qty: 270 0RF Rx Instructions: take with gabapentin 100mg 2 tabs TID. Total dose 1000mg TID varenicline [Chantix] 1 mg tablet 1 mg PO BID Qty: 60 1RF trazodone 50 mg tablet See Rx Instructions PO QHS PRN (Reason: insomnia) Qty: 90 2RF Rx Instructions: Take 3-4 tablets at bedtime as needed for sleep Date of admission: 05/04/23 12:30 Primary Care Provider: Juany Celis I. Admitting Provider: Jose Hough Attending physician on admission: Isa Bradley Cond
== END 2023-05-06 13:05 | disposition home or self-care (01) | DRG 472 ==
LOC: ANH3MED 12:35
PROVIDERS: Admitting Provider Neurological Surgery; PCP Physician Assistant Medical; Visit Provider Neurological Surgery
PROC: 0RG2071 Fusion of 2 or more Cervical Vertebral Joints with Autologous Tissue Substitute, Posterior Approach, Posterior Column, Open Approach (ICD-10-PCS; principal; 2023-05-04 08:00)
DX: M96.0 Pseudarthrosis after fusion or arthrodesis (principal); G95.9 Disease of spinal cord, unspecified; M48.02 Spinal stenosis, cervical region; F41.9 Anxiety disorder, unspecified; F17.210 Nicotine dependence, cigarettes, uncomplicated; G89.29 Other chronic pain; G54.0 Brachial plexus disorders; K58.9 Irritable bowel syndrome, unspecified; Z86.718 Personal history of other venous thrombosis and embolism
CPT/HCPCS: 36415; 80048; 81003; 85027; 85610; 85730; 86850; 86900; 86901; 93005; 97110; 97116; 97161; 97165; 97530; 97535; 99199; A9270; C1713; J0690; J1100; J1170; J2250; J2370; J2405; J2710; J3010; J7120

== ENCOUNTER 2023-06-11 13:10 | Outpatient (CLI) | payer MEDICARE, MEDICAID, SELFPAY ==
--- NOTE | ~2023-06-11 | XR_ITS ---
Cervical Spine: AP, lateral, open-mouth views Clinical History: Status post arthrodesis Findings: There is posterior fusion from C3 through T1. There is anterior fusion from C3 through C5, with interbody fusion devices at the C3-C4 and C4-C5 disc spaces. There is separate anterior plate an d fixation screws extending from C6 to C7. No acute fracture evident. Suggestion of underlying retrol isthesis of C4 over C5. Pre-vertebral soft tissues are unremarkable. Impression: Extensive anterior and posterior fusion of the cervical spine, as detailed above. No acute fracture. Suggestion of underlying retrolisthesis of C4 over C5. Reviewed, dictated and finalized at location M. Impression: Extensive anterior and posterior fusion of the cervical spine, as detailed sally e. No acute fracture. Suggestion of underlying retrolisthesis of C4 over C5.
== END 2023-06-11 13:11 | disposition home or self-care (01) ==
PROVIDERS: PCP Physician Assistant Medical; Visit Provider Neurological Surgery
DX: Z98.1 Arthrodesis status (principal)
CPT/HCPCS: 72040

== ENCOUNTER 2023-08-21 12:47 | Outpatient (CLI) | payer MEDICARE, MEDICAID, SELFPAY ==
--- NOTE | ~2023-08-21 | CT_ITS ---
EXAMINATION: CT cervical spine wo con DATE: 08/21/2023 13:09 INDICATION: Cervical arthrodesis. Right arm numbness and tingling. TECHNIQUE: Computed tomography (CT) of the cervical spine was performed without intravenous contrast. Automated exposure control and iterative reconstruction technique were employed. The dose-length pro duct was 157.21 mGy-cm. COMPARISON: Cervical spine radiographs 06/11/2023 FINDINGS: There is mild emphysema. There is 7 degrees levocurvature of cervical spine. There is 3 mm retrolisthesis of C3 on C4. There is mild kyphosis of upper cervical spine. There are changes of ante rior fusion procedure from C3 to C5 with interbody devices, bridging interbody bone, and anterior liza te and screws. There is bridging interbody bone at C5-C6. There are changes of anterior fusion proced ure at C6-C7 with nonbridging interbody bone graft and anterior plate and screws. There are changes o f posterior fusion procedure from C3 to T1 with cervical lateral mass screws and T1 pedicle screws. T here are chronic bilateral periscrew T1 pars defects. There are laminectomies from C3 to C7. Vertebra l body heights are normal. There is mildly decreased disc height at T2-T3. The following disc levels are specifically discussed: C2-C3: There is no uncovertebral joint osteoarthritis. There is severe bilateral facet joint osteoart hritis. There is no neural foraminal stenosis. There is no central canal stenosis. C3-C4: There is severe bilateral uncovertebral joint hypertrophy. There is severe right and moderate left facet joint hypertrophy. There is moderate right and mild left neural foraminal stenosis. There is mild central canal stenosis with posterior decompression. C4-C5: There is mild bilateral uncovertebral joint hypertrophy. There is moderate bilateral facet paresh nt hypertrophy. There is mild bilateral neural foraminal stenosis. There is no central canal stenosis . C5-C6: There is moderate bilateral uncovertebral joint hypertrophy. There is mild bilateral facet paresh nt hypertrophy. There is mild bilateral neural foraminal stenosis. There is no central canal stenosis . C6-C7: There is moderate bilateral uncovertebral joint hypertrophy. There is mild bilateral facet paresh nt hypertrophy. There is mild bilateral neural foraminal stenosis. There is no central canal stenosis . C7-T1: There is no uncovertebral joint osteoarthritis. There is mild bilateral facet joint hypertroph y. There is mild bilateral neural foraminal stenosis. There is no central canal stenosis. IMPRESSION: 1. Anterior fusion procedures from C3 to C7. Interbody bone graft is nonbridging at C6-C7. 2. Posterior fusion procedure from C3 to T1. 3. 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 4. Mild cervical spondylosis. Reviewed, dictated and finalized at location E. IMPRESSION: 1. Anterior fusion procedures from C3 to C7. Interbody bone graft is nonbridgin g at C6-C7. 2. Posterior fusion procedure from C3 to T1. 3. 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 4. Mild cervical spondylosis.
== END 2023-08-21 12:48 | disposition home or self-care (01) ==
PROVIDERS: PCP Physician Assistant Medical; Visit Provider Neurological Surgery
DX: M48.02 Spinal stenosis, cervical region (principal); Z98.1 Arthrodesis status; M47.892 Other spondylosis, cervical region
CPT/HCPCS: 72125

== ENCOUNTER 2023-11-21 09:52 | Outpatient (CLI) | payer MEDICARE, MEDICAID, SELFPAY ==
--- NOTE | 2023-12-14 17:12 | WPDSLEEPSTUD ---
Sleep Study Date of Study: 11/21/23 Ordering Provider: Vijay Ellison MD Interpreting Physician: Clementina Henderson MD Sleep Study Type: Split Polysomnogram Height: 1.68 m Weight: 58.06 kg Body Mass Index: 20.6 Neck Circumference (inches): 13 [place]: 3 Reason for Sleep Study Poor quality sleep, loud snoring, morning headaches Sleep History Yin Chacon is a 47-year-old woman with excessive daytime sleepiness. She wakes up feeling exhausted. She has to take naps in the afternoon. She had surgery in April of 2023 and this is when her sleep worsened. She is currently using oxygen 2 L at night. She rarely awakens from sleep short of breath. She never wakes at night with heartburn, belching or coughing.??She constantly snores, frequently snores loudly enough that others complain. She constant has trouble sleeping when she has a cold. She never wakes up gasping for breath during the night. She occasionally has breathing problems at night. She never sweats excessively at night. She never notices her heart pounding or beating irregularly during the night. She frequently falls asleep during the day. She never falls asleep involuntarily, never falls asleep while driving. She occasionally experiences loss of muscle tone with strong emotion. she always has daytime difficulties due to her excessive sleepiness. She never feels paralyzed on waking or falling asleep. She never experiences vivid dreams upon waking or falling asleep. She never feels afraid of going to sleep. She never has nightmares. She never recalls her dreams. She never has thoughts racing through her mind. She occasionally feels sad or depressed. She frequently feels anxiety. She constantly notices parts of her body jerk. She never kicks during the night. She never feels crawling or aching feelings in her legs. She rarely feels leg pain at night. She never has morning jaw pain, and never grinds her teeth at night. She constantly feels bothered by pain during the day, is constantly awakened by pain during the night. She constantly wakes up feeling stiff in the morning, constantly wakes feeling sore or achy in the morning. She constantly awakens with pain in her neck, spine, or joints. Normal bedtime is between 9:00 p.m. and 10:00 p.m., falling asleep within 5-10 minutes, typically waking up 2-3 times during the night, not for long, just long enough to go to the bathroom. 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 She wakes between 6:00 a.m. and 7:00 a.m.. She keeps the same schedule on weekends. She estimates getting 8 hours of sleep on average. She has to take naps during the day because she is so tired she can not avoid it. A short nap lasting 10 or 15 minutes is not refreshing. Habits:??Tobacco: A half pack per day Caffeine: 2 servings. Alcohol: none Recreational substances: none PMF Past Medical History Medical History Anxiety Chronic neck pain DVT of upper extremity (deep vein thrombosis) Gallbladder attack IBS (irritable bowel syndrome) Menopausal and perimenopausal disorder OCD (obsessive compulsive disorder) Pneumothorax large right with tension s/p chest tube Pulmonary nodule Sinusitis, chronic Thoracic outlet syndrome Surgical History Surgical History Hx of spinal surgery multiple on the neck Status post cervical spinal fusion Social History Social History Social History: Yin is very confident filling out medical forms. In the last 12 months she has received assistance paying for medications from an organization or program. Smoking packs per day: 0.50 Smoking cigarettes per day: 10.0 Years smoked: 30 Smoking pack-years: 15.00 Smoking status: Current every day smoker Alcohol intake: never Substance use: current
[2023-12-21 19:36] VITALS: BMI 20.6
== END 2023-11-22 07:40 | disposition home or self-care (01) ==
LOC: ANHCSM 09:54
PROVIDERS: PCP Physician Assistant Medical; Visit Provider Internal Medicine Pulmonary Disease
DX: G47.10 Hypersomnia, unspecified (principal); G47.31 Primary central sleep apnea
CPT/HCPCS: 95811